=== PATIENT | female | born 1990 | race Caucasian/White ===

== ENCOUNTER 2023-04-05 11:56 | Emergency (ER) | payer SELFPAY ==
[2023-04-05 12:21] VITALS: PULSE 124; RESP 16; TEMP 36.9; O2SAT 96; BMI 20.3
--- NOTE | 2023-04-05 13:05 | W.ED.ABDPA2 ---
HPI - Abdominal Pain General: Chief Complaint: Abdominal Pain Stated Complaint: abd swelling, pain, N/V Time Seen by Provider: 04/05/23 12:27 Source: patient and family Mode of arrival: ambulatory Limitations: no limitations History of Present Illness: Patient comes to our emergency department because of abdominal pain and repetitive emesis. Symptoms began typically for her last evening. She has a history of hereditary angioedema that in her case predominantly presents with abdominal pain and repetitive vomiting. They are visiting here from [facility]. She has had several episodes requiring treatment in the emergency department in that location with both C1 esterase inhibitors as well as a icadibant. She denies any other potential etiologies of her current presentation to include bad food exposure or known infectious disease exposure etc. She had a prior cholecystectomy. She has had a tubal ligation. Her spouse who is with her is not ill. She denies any bloody emesis or black tarry stools. She denies history of airway related angioedema and is not complaining of any difficulty breathing etc. at this time. MD elicited complaint: abdominal pain Pain Consistency: intermittent and colicky Location: Epigastric Severity: moderate Quality: cramping Context: history of similar episodes Associated Symptoms: Reports vomiting; Denies chills, diarrhea, dysuria, fever(s) and hematemesis Review of Systems Const: Denies: fever(s) or chills Eyes: Denies: change in vision ENMT: Denies: odynophagia, nasal congestion or nasal obstruction Card: Denies: chest pain, palpitations or irregular heart rhythm Resp: Denies: dyspnea, productive cough or non-productive cough GI: Reports: abdominal pain and vomiting; Denies: hematemesis or diarrhea : Denies: flank pain, difficulty voiding, dysuria or urinary frequency Musc: Denies: neck pain, back pain, extremity pain or extremity swelling Skin/Breast: Denies: rash, pruritus or erythema Neuro: Denies: headache(s), numbness in extremities or weakness in extremities Endo: Denies: polyuria Physical Exam Narrative: EXAM NARRATIVE: Patient appears uncomfortable but she is alert and communicates answers questions appropriately. Const: COMMON NORMALS: patient oriented x3 and alert GENERAL APPEARANCE: cooperative NUTRITIONAL APPEARANCE: thin HENMT: COMMON NORMALS: normocephalic, Normal nasal mucous membranes and turbinates present, moist oral mucous membranes and oropharynx normal HEAD & SCALP: normocephalic NOSE: Normal nasal mucous membranes and turbinates present Eye: COMMON NORMALS: Equal, round and reactive pupils present, EOMs intact bilaterally and conjunctivae normal CONJUNCTIVA: Yes conjunctivae normal PUPIL: Yes Equal, round and reactive pupils present Neck/C-Spine: COMMON NORMALS: full ROM, no lymphadenopathy and supple Chest: COMMONS NORMALS: normal inspection of the chest and normal palpation of entire chest wall Resp: COMMON NORMALS: normal respiratory effort, No retractions, No use of accessory muscles and clear to auscultation bilaterally EFFORT & INSPECTION: Yes able to speak in complete sentences AUSCULTATION: clear to auscultation bilaterally Cardio: COMMON NORMALS: regular rate, regular rhythm, No murmurs present (Cardio) and Peripheral pulses 2+ throughout RATE: regular rate RHYTHM: regular rhythm PERIPHERAL PULSES: Peripheral pulses 2+ throughout GI: OTHER: She has tenderness in her upper abdomen with some voluntary guarding. No rebound. No other abdominal findings at this time. : COMMON NORMALS: Yes no CVA tenderness BLADDER/KIDNEY EXAM: Yes no CVA tenderness Back/Pelvis: COMMON NORMALS: no CVA tenderness, thoracic and lumbar spine normal to inspection, no thoracic nor lumbar tenderness and thoraco-lumbar ROM normal Extremity: COMMON NORMALS: normal to inspection, full ROM, capillary refill normal and no joint enlargement Neuro: COMMON NORMALS: patient oriented x3, moves all extremities, no focal motor deficits and no sensory deficits noted SENSORIUM/ORIENTATION: Yes alert CRANIAL NERVES: Yes CN normal except as noted Psych: COMMON NORMALS: mental status grossly normal Skin: COMMON NORMALS: no rashes or lesions noted, turgor normal and no petechiae GENERAL SKIN EXAM: no rashes or lesions noted and turgor normal Course Reevaluation(s): Reevaluation #1: None of the new or agents for treating her condition are available here. We will go ahead an proceed with 2 units of fresh frozen plasma which contains some C1 esterase inhibitors. Time: 13:40 Reevaluation #2: Patient received her fluids as well as 2 units of FFP. She states she feels markedly better. She appears to be comfortable vital signs are normal. No airway compromise or issues. No ongoing abdominal pain vomiting etc. She is comfortable with being discharged. They plan on staying in [facility] and then traveling back to [place] tomorrow. 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 Historically she is got an injections of either C1 esterase inhibitors or other bradykinin mediating compounds. We do not have those compounds available at in our formulary at this location. Patient was given benefit of IV fluids antinausea medicine and she received 2 units of FFP. Ancillary studies were reassuring and that there was no unexpected perturbations in her biochemistry. She responded well to therapy here and was stable and suitable to be discharged to a motel for the night and they plan on traveling back home tomorrow. We also reviewed precautions for return and also for stopping at a large center in route back home. Lab Data I reviewed the patient's lab results. 04/05/23 12:47 04/05/23 12:47 Labs/Radiology: Laboratory Results WBC 13.5 10^3/uL (4.0-10.0) H 04/05/23 12:47 RBC 5.06 10^6/uL (4.1-5.3) 04/05/23 12:47 Hgb 15.2 g/dL (11.5-15.3) 04/05/23 12:47 Hct 45.8 % (37.0-47.0) 04/05/23 12:47 MCV 90.5 fl (81-99) 04/05/23 12:47 MCH 30.0 pg (28.0-34.0) 04/05/23 12:47 MCHC 33.2 g/dL (30.0-36.0) 04/05/23 12:47 RDW 13.2 % (12.1-15.1) 04/05/23 12:47 Plt Count 298 10^3/cmm (130-400) 04/05/23 12:47 MPV 11.1 fL (7.4-10.4) H 04/05/23 12:47 Neut % (Auto) 82.4 % 04/05/23 12:47 Lymph % (Auto) 12.5 % 04/05/23 12:47 Fisher % (Auto) 4.2 % 04/05/23 12:47 Eos % (Auto) 0.3 % 04/05/23 12:47 Baso % (Auto) 0.2 % 04/05/23 12:47 Neut # (Auto) 11.11 10^3/uL (1.8-7.7) H 04/05/23 12:47 Lymph # (Auto) 1.7 10^3/uL (0.8-4.8) 04/05/23 12:47 Fisher # (Auto) 0.6 10^3/uL (0.2-0.9) 04/05/23 12:47 Eos # (Auto) 0.0 10^3/uL (0.0-0.8) 04/05/23 12:47 Baso # (Auto) 0.0 10^3/uL (0.0-0.1) 04/05/23 12:47 Nucleated RBC % (auto) 0 % 04/05/23 12:47 Nucleated RBCs # 0.0 /100WBC 04/05/23 12:47 Sodium 136 mmol/L (136-145) 04/05/23 12:47 Potassium 4.2 mmol/L (3.5-5.1) 04/05/23 12:47 Chloride 102 mmol/L (98-107) 04/05/23 12:47 Carbon Dioxide 18 mmol/L (22-29) L 04/05/23 12:47 Anion Gap 20.2 (5-19) H 04/05/23 12:47 BUN 9 mg/dL (6-20) 04/05/23 12:47 Creatinine 0.7 mg/dL (0.5-0.9) 04/05/23 12:47 GFR Calculation 97.6 mL/min (90-130) 04/05/23 12:47 Glucose 117 mg/dL (65-115) H 04/05/23 12:47 Calculated Osmolality 282 mOsm/kg (285-295) L 04/05/23 12:47 Calcium 9.1 mg/dL (8.5-10.5) 04/05/23 12:47 Total Bilirubin 1.0 mg/dL (0.15-1.2) 04/05/23 12:47 AST 17 U/L (0-32) 04/05/23 12:47 ALT 8 U/L (0-33) 04/05/23 12:47 Alkaline Phosphatase 76 U/L (35-105) 04/05/23 12:47 Total Protein 7.2 g/dL (6.6-8.7) 04/05/23 12:47 Albumin 4.5 g/dL (3.5-5.2) 04/05/23 12:47 Globulin 2.7 g/dL (1.3-4.6) 04/05/23 12:47 Lipase 25 U/L (13-60) 04/05/23 12:47 Blood Type O Positive 04/05/23 14:16 Rho(D) Type Positive 04/05/23 14:16 Discharge Plan Discharge Patient Disposition: Home 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 If you have any recurrence of your symptoms while you are still in the area return to this or the nearest emergency department. We recommend that you follow-up upon return home and if you have problems in route you should stop in a larger city with [facility] [place] or other tertiary care centers. Smaller locations and community hospitals are less likely to have the medications you need. Coding Level of Care Code ED Medical Doctor Md for Joshua Wooten
[2023-04-05 13:16] LABS: Basophils % 0.2 %; Eosinophils % 0.3 %; Hematocrit 45.8 % (37.0-47.0); Hemoglobin 15.2 g/dL (11.5-15.3); Lymphocytes # 1.7 10^3/uL (0.8-4.8); Lymphocytes % 12.5 %; Mean Corpuscular HGB Conc 33.2 g/dL (30.0-36.0); Mean Corpuscular Volume 90.5 fl (81-99); Mean Platelet Volume 11.1 fL (7.4-10.4); Monocytes # 0.6 10^3/uL (0.2-0.9); Monocytes % 4.2 %; Neutrophils # 11.11 10^3/uL (1.8-7.7); Neutrophils % 82.4 %; Nucleated Red Blood Cells % 0 %; Platelet Count 298 10^3/cmm (130-400); Red Blood Count 5.06 10^6/uL (4.1-5.3); Red Cell Distribution Width 13.2 % (12.1-15.1); White Blood Count 13.5 10^3/uL (4.0-10.0)
[2023-04-05] MEDS: haloperidol inj 5 mg/mL INJ 1 mL IVP (13:29)
[2023-04-05] MEDS: lactated ringers 1,000 ML 999 ML IV (13:30)
[2023-04-05 13:35] LABS: Alanine Aminotransferase 8 U/L (0-33); Albumin Level 4.5 g/dL (3.5-5.2); Alkaline Phosphatase 76 U/L (35-105); Anion Gap 20.2 (5-19); Aspartate Amino Transferase 17 U/L (0-32); Blood Urea Nitrogen 9 mg/dL (6-20); Calcium 9.1 mg/dL (8.5-10.5); Carbon Dioxide 18 mmol/L (22-29); Chloride 102 mmol/L (98-107); Globulin 2.7 g/dL (1.3-4.6); Glomerular Filtration Rate 97.6 mL/min (90-130); Glucose 117 mg/dL (65-115); Lipase 25 U/L (13-60); Osmolality Calculated 282 mOsm/kg (285-295); Potassium 4.2 mmol/L (3.5-5.1); Sodium 136 mmol/L (136-145); Total Protein 7.2 g/dL (6.6-8.7)
[2023-04-05] MEDS: diphenhydrAMINE 50 mg/mL SDV 1mL IVP (14:06)
[2023-04-05] MEDS: famotidine 20 mg/2 mL INJ 40 MG IVP (14:06)
[2023-04-05 15:40] VITALS: BP 115/83; PULSE 82; RESP 16; TEMP 36.7; O2SAT 98
[2023-04-05 16:33] VITALS: BP 112/74; RESP 15
[2023-04-05 16:50] VITALS: BP 112/74; PULSE 80; RESP 15; TEMP 36.6; O2SAT 100
[2023-04-05 18:13] VITALS: BP 112/74; PULSE 80; RESP 15; TEMP 36.6; O2SAT 100
--- NOTE | 2023-04-11 11:59 | DCPLANNER ---
manager acquisition called patient due to no primary care physician - no answer at this time.
[2023-04-13 12:25] LABS: Functional C1 Estrase Inhibito 5 % (>=68)
== END 2023-04-05 18:15 | disposition home or self-care (01) ==
PROVIDERS: Emergency Medicine; Emergency Provider Emergency Medicine
DX: D84.1 Defects in the complement system (principal)
CPT/HCPCS: 36415; 36430; 80053; 83690; 85025; 86160; 86900; 86927; 96374; 96375; 99284; J1200; J1630; J3490; J7120; P9017